=== PATIENT | female | born 1980 | race Caucasian/White ===

== ENCOUNTER 2016-10-17 18:25 | Emergency (ER) | payer SELFPAY ==
[2014-05-28 07:13] VITALS: BMI 41.6
[~2016-10-17 18:25] MED LIST: BYSTOLIC5 MG PO; COVARYX TABLET1 TAB PO; DEXILANT60 MG PO; PROZAC20 MG PO; ULTRAM50 MG PO; VICODIN PO; ZOFRAN4 MG PO
== END 2016-10-17 21:35 | disposition home or self-care (01) ==
LOC: D.ER 18:25
DX: G43.909 Migraine, unspecified, not intractable, without status migrainosus (principal); E86.0 Dehydration; R11.10 Vomiting, unspecified; F17.200 Nicotine dependence, unspecified, uncomplicated; J45.909 Unspecified asthma, uncomplicated; K21.9 Gastro-esophageal reflux disease without esophagitis

== ENCOUNTER 2016-10-18 11:04 | Emergency (ER) | payer MEDICAID ==
[2014-05-28 07:13] VITALS: BMI 41.6
[2016-10-18 12:22] LABS: BASOPHILS 0.2 % (0.0-2.0); EOSINOPHILS 2.9 % (0-7); HEMATOCRIT 40.9 % (36.0-48.0); HEMOGLOBIN 13.4 g/dL (12-16); IMMATURE GRANULOCYTES 0.1 % (0-5); LYMPHOCYTES 36.4 % (15-50); MCH 27.5 pg (26.0-34.0); MCHC 32.8 g/dL (31.0-37.0); MCV 83.8 fL (80.0-100.0); MEAN PLATELET VOLUME 10.5 fL (7.4-10.4); MONOCYTES 7.3 % (2-11); NEUTROPHILS 53.1 % (40-80); PLATELET COUNT 210 10x3/uL (130-400); RBC 4.88 10x6/uL (4.00-5.40); RDW 14.1 % (11.5-14.5); WBC 8.2 10x3/uL (4.8-10.8)
[2016-10-18 12:54] LABS: ALBUMIN 3.4 g/dL (3.4-5.0); ANION GAP 12.5 mmol/L (8-16); BILIRUBIN - TOTAL 0.29 mg/dL (0.2-1.3); CALCIUM 9.4 mg/dL (8.5-10.1); CARBON DIOXIDE 27.4 mmol/L (21.0-32.0); CREATININE - SERUM 1.1 mg/dL (0.6-1.3); POTASSIUM - SERUM 3.9 mmol/L (3.5-5.1); PROTEIN - SERUM 6.7 g/dL (6.4-8.2)
== END 2016-10-18 13:50 | disposition home or self-care (01) ==
LOC: D.ER 11:04
PROVIDERS: Physician Assistant
DX: G43.909 Migraine, unspecified, not intractable, without status migrainosus (principal); F17.200 Nicotine dependence, unspecified, uncomplicated

== ENCOUNTER 2016-10-26 17:47 | Emergency (ER) | payer SELFPAY ==
[2014-05-28 07:13] VITALS: BMI 41.6
== END 2016-10-26 21:40 | disposition home or self-care (01) ==
LOC: D.ER 17:47
DX: G43.919 Migraine, unspecified, intractable, without status migrainosus (principal); E86.0 Dehydration; R11.10 Vomiting, unspecified; F17.200 Nicotine dependence, unspecified, uncomplicated

== ENCOUNTER 2017-07-09 12:54 | Emergency (ER) | payer MEDICAID ==
[2014-05-28 07:13] VITALS: BMI 41.6
[2017-07-30] MEDS ORDERED: ESTRACE1 MG PO (09:10)
[2017-07-30] MEDS ORDERED: LYRICA75 MG PO (09:11)
[2017-07-30] MEDS ORDERED: NORCO 7.5/325 T1 TA1 PO (09:11)
[2017-07-30] MEDS ORDERED: THORAZINE10 MG PO (09:11)
[2017-07-30] MEDS ORDERED: ZOLOFT50 MG PO (09:12)
[2017-07-30] MEDS ORDERED: PEPCID40 MG PO (09:13)
[2017-07-30] MEDS ORDERED: TOPAMAX50 MG PO (09:13)
[2017-07-30] MEDS ORDERED: OMEPRAZOLE20 M1 PO (09:13)
[2017-07-30] MEDS ORDERED: VALIUM10 MG PO (09:14)
[2017-07-30] MEDS ORDERED: PROAIR HFA8.5 GM INH (09:17)
== END 2017-07-09 15:44 | disposition home or self-care (01) ==
LOC: D.ER 12:54
DX: G43.909 Migraine, unspecified, not intractable, without status migrainosus (principal); F17.200 Nicotine dependence, unspecified, uncomplicated

== ENCOUNTER 2017-07-31 07:29 | Day surgery (SDC) | payer MEDICAID ==
[~2017-07-31] VITALS: Ht 160 cm; Wt 117.9 kg
--- NOTE | ~2017-07-31 | OP ---
PATIENT NAME: IRENE VENTURA MEDICAL RECORD: [id number] :76 LOCATION:D.OPS ADMISSION DATE: SURGEON: TONO BAUMAN MD DATE OF OPERATION: 07/31/2017 PREOPERATIVE DIAGNOSES: 1. Serrated adenoma, which had been tattooed at 40 cm within the descending colon. 2. Previous negative biopsies of the ileocecal valve. POSTOPERATIVE DIAGNOSES: 1. Serrated adenoma, which had been tattooed at 40 cm within the descending colon. 2. Previous negative biopsies of the ileocecal valve. 3. Polypoid appearance to the ileocecal valve and significant regrowth of the polyp at 40 cm. PROCEDURES: 1. Total colonoscopy to cecum. 2. Cold endoscopic biopsies of the serrated adenoma at 40 cm and then ablation at the base of the polyp with the argon plasma director clinical applications utilizing the right colon setting in the forced mode. 3. Cold endoscopic biopsies of the ileocecal valve. SURGEON: Tono Bauman MD CASING IN LINE SETTER: None. BLOOD LOSS: Minimal. ANESTHESIA: General. COMPLICATIONS: None. The risks, possible complications, alternatives to procedure were explained to the patient. She elects to proceed. OPERATIVE COURSE: The patient was conveyed to the operating room electively on 07/31/2017. General anesthesia was induced by the anesthesia staff. The patient was placed in the Aguilar position. A digital rectal examination was performed. A colonoscope was inserted through the anus. It was easily advanced to the cecum. I slowly withdrew the endoscope. The prep was adequate. I dragged the folds. The pullback was greater than a 16-minute pullback. I biopsied the ileocecal valve which had a polypoid appearance to particularly under narrow band imaging. The biopsy sites were made hemostatic with the argon plasma director clinical applications. I then withdrew the endoscope to 40 cm. The sessile polyp was noted, it was 2.5 cm in length and was on a fold. It was biopsied multiple times utilizing the cold endoscopic biopsy forceps and then I ablated the base of the polyp with the argon plasma director clinical applications. I then continued to withdraw the endoscope. A retroflexed view was obtained in the rectum. I then unretroflexed the scope and removed it under direct vision. PLAN: I will see the patient in my office in 2-3 weeks. I will plan for the next colonoscopy with the argon plasma director clinical applications to take place in 1 year. OPERATIVE REPORT [id number] IRENE VENTURA TRANSINT:[id number] Voice Confirmation ID: [id number] DOCUMENT ID: [id number] TONO BAUMAN MD at 1212 CC: HANG NOE MD and CARSON MELENDREZ MD [id number] DICTATION DATE: 07/31/17 1544 UNDERCOATER: 07/31/17 1633 [facility] [place] 07/31/[address] [address]
--- NOTE | ~2017-07-31 | HP ---
PATIENT: IRENE VENTURA MEDICAL RECORD: [id number] ACCOUNT: [id number] LOCATION:DMiguelOPS : 76 ADMISSION DATE: 07/31/17 HISTORY AND PHYSICAL EXAMINATION CHIEF COMPLAINT: Colon polyp. HISTORY OF PRESENT ILLNESS: There is a history and physical on the chart. The patient had a polyp, which was tattooed at 40 cm. This was within the descending colon. The pathology on this was that of a serrated adenoma. The history and physical examination has been reviewed as have the patient's current medications, past medical and surgical history, social history. PHYSICAL EXAMINATION: GENERAL: The patient does not appear acutely ill. She does not appear chronically ill. VITAL SIGNS: Reviewed. The entire physical examination was performed in the presence of a female nurse. EARS: External ears appear normal. EYES: Extraocular movements are intact. NECK: Trachea is midline. CHEST: No intercostal retractions. PULMONARY: Nonlabored, no stridor. IMPRESSION: History of serrated adenoma at 40 cm, which has been tattooed. PLAN: Colonoscopy, polypectomy with the argon plasma tail dogger. TRANSINT:[id number] Voice Confirmation ID: [id number] DOCUMENT ID: [id number] TONO BAUMAN MD at 1212 CC: HANG NOE MD and CARSON MELENDREZ MD [id number] DICTATION DATE: 07/31/17 1542 COMPRESSOR MECHANIC BUS: 07/31/17 1600 [facility] 07/31/17 [place] [id number] [place] [id number]
[~2017-07-31 07:29] MED LIST changes: +ESTRACE1 MG PO; +LYRICA75 MG PO; +NORCO 7.5/325 T1 TA1 PO; +OMEPRAZOLE20 M1 PO; +PEPCID40 MG PO; +PROAIR HFA8.5 GM INH; +THORAZINE10 MG PO; +TOPAMAX50 MG PO; +VALIUM10 MG PO; +ZOLOFT50 MG PO
[2017-07-31 07:49] LABS: HEMATOCRIT 43.4 % (36.0-48.0); HEMOGLOBIN 14.3 g/dL (12-16); MCH 28.1 pg (26.0-34.0); MCHC 32.9 g/dL (31.0-37.0); MCV 85.3 fL (80.0-100.0); MEAN PLATELET VOLUME 10.2 fL (7.4-10.4); RBC 5.09 10x6/uL (4.00-5.40); RDW 13.8 % (11.5-14.5); WBC 10.7 10x3/uL (4.8-10.8)
[2017-07-31 08:54] VITALS: BP 102/67; Ht 160 cm; Wt 117.9 kg
== END 2017-07-31 16:55 | disposition home or self-care (01) ==
LOC: D.OPS 07:29 → D.PAN 10:45 → D.OPS 10:45
PROVIDERS: Anesthesiology
DX: K63.5 Polyp of colon (principal); Z01.812 Encounter for preprocedural laboratory examination

== ENCOUNTER 2017-12-28 09:51 | Emergency (ER) | payer MEDICAID ==
[~2017-12-28] VITALS: Ht 160 cm; Wt 110.9 kg
[2017-12-28 09:59] VITALS: Ht 160 cm; Wt 110.9 kg
[2017-12-28] MEDS ORDERED: VOLTAREN75 MG PO (10:44)
[2017-12-28] MEDS ORDERED: ROBAXIN-750750 MG PO (10:44)
[2017-12-28 11:16] VITALS: BP 131/87
== END 2017-12-28 11:17 | disposition home or self-care (01) ==
LOC: D.ER 09:51
DX: M79.1 Myalgia (principal); W19.XXXA Unspecified fall, initial encounter; Y93.89 Activity, other specified; Y92.524 Gas station as the place of occurrence of the external cause

== ENCOUNTER 2018-02-20 16:34 | Emergency (ER) | payer MEDICAID ==
[~2018-02-20] VITALS: Ht 160 cm; Wt 109.1 kg
[~2018-02-20 16:34] MED LIST changes: +ROBAXIN-750750 MG PO; +VOLTAREN75 MG PO
[2018-02-20 16:52] VITALS: Ht 160 cm; Wt 109.1 kg
[2018-02-20 17:10] LABS: BASOPHILS 0.4 % (0-2); EOSINOPHILS 2.2 % (0-7); HEMATOCRIT 41.3 % (36.0-48.0); IMMATURE GRANULOCYTES 0.1 % (0-5); LYMPHOCYTES 34.9 % (15-50); MCH 28.3 pg (26.0-34.0); MCHC 33.9 g/dL (31.0-37.0); MCV 83.4 fL (80.0-100.0); MEAN PLATELET VOLUME 10.5 fL (7.4-10.4); MONOCYTES 5.3 % (2-11); NEUTROPHILS 57.1 % (40-80); RBC 4.95 10x6/uL (4.00-5.40); WBC 8.1 10x3/uL (4.8-10.8)
[2018-02-20 17:16] LABS: PLATELET COUNT 236 10x3/uL (130-400)
[2018-02-20 17:26] LABS: APPEARANCE CLEAR (CLEAR); BILIRUBIN NEGATIVE (NEGATIVE); COLOR YELLOW (YELLOW); GLUCOSE NEGATIVE (NEGATIVE); KETONE NEGATIVE (NEGATIVE); NITRITE NEGATIVE (NEGATIVE); PROTEIN NEGATIVE (NEGATIVE); UROBILINOGEN NORMAL (NORMAL)
[2018-02-20 17:28] LABS: AMORPHOUS SEDIMENT <1+ /lpf (NONE SEEN); BACTERIA MODERATE /hpf (NONE SEEN); EPITHELIAL CELLS 0-5 /hpf (0-5); WHITE CELLS - URINE 0-5 /hpf (0-5)
[2018-02-20 17:31] LABS: ALBUMIN 3.6 g/dL (3.4-5.0); ANION GAP 12.4 mmol/L (8-16); BILIRUBIN - TOTAL 0.22 mg/dL (0.2-1.3); CALCIUM 8.8 mg/dL (8.5-10.1); CARBON DIOXIDE 25.7 mmol/L (21.0-32.0); POTASSIUM - SERUM 4.1 mmol/L (3.5-5.1); PROTEIN - SERUM 7.8 g/dL (6.4-8.2)
[2018-02-20] MEDS ORDERED: CARAFATE1 G PO (18:28)
[2018-02-20] MEDS ORDERED: OMEPRAZOLE40 MG PO (18:28)
[2018-02-20 19:09] VITALS: BP 126/72
== END 2018-02-20 19:10 | disposition home or self-care (01) ==
LOC: D.ER 16:34
PROVIDERS: Family Medicine
DX: K29.60 Other gastritis without bleeding (principal); R11.2 Nausea with vomiting, unspecified; R19.7 Diarrhea, unspecified; J44.9 Chronic obstructive pulmonary disease, unspecified; F17.200 Nicotine dependence, unspecified, uncomplicated

== ENCOUNTER 2018-03-06 18:10 | Emergency (ER) | payer MEDICAID ==
[~2018-03-06] VITALS: Ht 160 cm; Wt 110.5 kg
[~2018-03-06 18:10] MED LIST changes: +CARAFATE1 G PO; +OMEPRAZOLE40 MG PO
[2018-03-06 18:34] VITALS: Ht 160 cm; Wt 110.5 kg
[2018-03-06] MEDS ORDERED: NEURONTIN 300300 MG PO (18:40)
[2018-03-06] MEDS ORDERED: CYMBALTA60 MG PO (18:40)
[2018-03-06] MEDS ORDERED: MINIPRESS2 MG PO (18:41)
[2018-03-06 19:13] LABS: BASOPHILS 0.2 % (0-2); EOSINOPHILS 1.7 % (0-7); HEMATOCRIT 38.8 % (36.0-48.0); HEMOGLOBIN 12.9 g/dL (12-16); IMMATURE GRANULOCYTES 0.1 % (0-5); LYMPHOCYTES 25.1 % (15-50); MCH 27.7 pg (26.0-34.0); MCHC 33.2 g/dL (31.0-37.0); MCV 83.4 fL (80.0-100.0); MEAN PLATELET VOLUME 10.1 fL (7.4-10.4); MONOCYTES 6.1 % (2-11); NEUTROPHILS 66.8 % (40-80); PLATELET COUNT 204 10x3/uL (130-400); RBC 4.65 10x6/uL (4.00-5.40); RDW 14.2 % (11.5-14.5); WBC 10.1 10x3/uL (4.8-10.8)
[2018-03-06 19:43] LABS: ALBUMIN 3.6 g/dL (3.4-5.0); ALKALINE PHOSPHATASE 90 U/L (46-116); ALT (SGPT) 24 U/L (10-68); BILIRUBIN - TOTAL 0.11 mg/dL (0.2-1.3); CALC OSMOLALITY 277 mosm/kg (275-300); CALCIUM 8.7 mg/dL (8.5-10.1); CHLORIDE - SERUM 104 mmol/L (98-107); GLUCOSE 97 mg/dL (74-106); POTASSIUM - SERUM 3.7 mmol/L (3.5-5.1); PROTEIN - SERUM 6.8 g/dL (6.4-8.2); SODIUM 138 mmol/L (136-145); UREA NITROGEN 19 mg/dL (7-18); eGFR NON AFRICAN AMERICAN 65 mL/min (90-120)
[2018-03-06 19:44] LABS: AMYLASE - SERUM 40 U/L (25-115); LIPASE 94 U/L (73-393)
[2018-03-06 19:47] LABS: TROPONIN-I < 0.017 ng/mL (0.000-0.060)
[2018-03-06 21:08] LABS: APPEARANCE CLEAR (CLEAR); BILIRUBIN NEGATIVE (NEGATIVE); COLOR STRAW (YELLOW); GLUCOSE NEGATIVE (NEGATIVE); KETONE NEGATIVE (NEGATIVE); NITRITE NEGATIVE (NEGATIVE); PROTEIN NEGATIVE (NEGATIVE); SPECIFIC GRAVITY 1.005 (1.005-1.020); UROBILINOGEN NORMAL (NORMAL)
[2018-03-06 21:10] LABS: BACTERIA FEW /hpf (NONE SEEN); EPITHELIAL CELLS 0-5 /hpf (0-5); RED CELLS - URINE 0-5 /hpf (0-5); WHITE CELLS - URINE 0-5 /hpf (0-5)
[2018-03-06 21:15] LABS: HCG URINE NEGATIVE (NEGATIVE)
[2018-03-06 21:52] VITALS: BP 112/63
== END 2018-03-06 21:57 | disposition home or self-care (01) ==
LOC: D.ER 18:10
PROVIDERS: Family Medicine
DX: M54.14 Radiculopathy, thoracic region (principal); R10.9 Unspecified abdominal pain; F17.200 Nicotine dependence, unspecified, uncomplicated

== ENCOUNTER → 2018-03-12 08:26 | Outpatient (CLI) | payer MEDICAID ==
[2018-03-06 18:34] VITALS: BMI 43.1
[~2018-03-12 08:26] MED LIST changes: +CYMBALTA60 MG PO; +MINIPRESS2 MG PO; +NEURONTIN 300300 MG PO
== END | disposition home or self-care (01) ==
LOC: D.RAD 03-06 10:00
DX: K21.9 Gastro-esophageal reflux disease without esophagitis (principal)

== ENCOUNTER → 2018-06-06 10:10 | Outpatient (CLI) | payer MEDICAID ==
[2018-03-06 18:34] VITALS: BMI 43.1
[~2018-06-06 10:10] MED LIST changes: +BENTYL 20 MG TA20 MG PO; +COMPAZINE5 MG PO; +FLOMAX0.4 MG PO; +OXYBUTYNIN10 MG/BOTT PO; +SINGULAIR10 MG PO
== END | disposition home or self-care (01) ==
LOC: D.RAD 06-05 11:00
DX: R11.2 Nausea with vomiting, unspecified (principal); R10.9 Unspecified abdominal pain

== ENCOUNTER 2018-06-06 18:21 | Emergency (ER) | payer MEDICAID ==
[~2018-06-06] VITALS: Ht 160 cm; Wt 111.8 kg
[~2018-06-06 18:21] MED LIST changes: -BENTYL 20 MG TA20 MG PO; -COMPAZINE5 MG PO; -FLOMAX0.4 MG PO; -OXYBUTYNIN10 MG/BOTT PO; -SINGULAIR10 MG PO
[2018-06-06 19:04] VITALS: BP 113/67; Ht 160 cm; Wt 111.8 kg
[2018-06-06] MEDS ORDERED: SINGULAIR10 MG PO (19:06)
[2018-06-06] MEDS ORDERED: FLOMAX0.4 MG PO (19:07)
[2018-06-06] MEDS ORDERED: ESTRACE1 MG PO (19:07)
[2018-06-06] MEDS ORDERED: OXYBUTYNIN10 MG/BOTT PO (19:07)
[2018-06-06 19:57] LABS: ALBUMIN 3.5 g/dL (3.4-5.0); ALKALINE PHOSPHATASE 102 U/L (46-116); ALT (SGPT) 27 U/L (10-68); BILIRUBIN - TOTAL 0.15 mg/dL (0.2-1.3); CALC OSMOLALITY 281 mosm/kg (275-300); CALCIUM 8.8 mg/dL (8.5-10.1); CARBON DIOXIDE 26.4 mmol/L (21.0-32.0); CHLORIDE - SERUM 103 mmol/L (98-107); CREATININE - SERUM 0.9 mg/dL (0.6-1.3); GLUCOSE 100 mg/dL (74-106); POTASSIUM - SERUM 3.8 mmol/L (3.5-5.1); SODIUM 141 mmol/L (136-145); UREA NITROGEN 15 mg/dL (7-18); eGFR NON AFRICAN AMERICAN 73 mL/min (90-120)
[2018-06-06 20:02] LABS: AMYLASE - SERUM 58 U/L (25-115); LIPASE 132 U/L (73-393)
[2018-06-06 20:03] LABS: TROPONIN-I < 0.017 ng/mL (0.000-0.060)
[2018-06-06 20:05] LABS: BASOPHILS 0.3 % (0-2); EOSINOPHILS 2.7 % (0-7); HEMATOCRIT 42.7 % (36.0-48.0); HEMOGLOBIN 14.2 g/dL (12-16); IMMATURE GRANULOCYTES 0.2 % (0-5); LYMPHOCYTES 42.6 % (15-50); MCH 28.2 pg (26.0-34.0); MCHC 33.3 g/dL (31.0-37.0); MCV 84.9 fL (80.0-100.0); MEAN PLATELET VOLUME 10.1 fL (7.4-10.4); MONOCYTES 5.4 % (2-11); NEUTROPHILS 48.8 % (40-80); RBC 5.03 10x6/uL (4.00-5.40); RDW 14.3 % (11.5-14.5)
[2018-06-06 20:07] LABS: PLATELET COUNT 276 10x3/uL (130-400)
[2018-06-06 20:33] LABS: APPEARANCE CLEAR (CLEAR); COLOR YELLOW (YELLOW)
[2018-06-06 20:34] LABS: BILIRUBIN NEGATIVE (NEGATIVE); GLUCOSE NEGATIVE (NEGATIVE); KETONE NEGATIVE (NEGATIVE); NITRITE NEGATIVE (NEGATIVE); PROTEIN NEGATIVE (NEGATIVE); UROBILINOGEN NORMAL (NORMAL)
[2018-06-06 20:35] LABS: BACTERIA MODERATE /hpf (NONE SEEN); EPITHELIAL CELLS 0-5 /hpf (0-5); RED CELLS - URINE 0-5 /hpf (0-5); WHITE CELLS - URINE 0-5 /hpf (0-5)
[2018-06-06 20:36] LABS: HCG URINE NEGATIVE (NEGATIVE)
[2018-06-06] MEDS ORDERED: BENTYL 20 MG TA20 MG PO (22:04)
[2018-06-06] MEDS ORDERED: COMPAZINE5 MG PO (22:04)
== END 2018-06-06 22:54 | disposition home or self-care (01) ==
LOC: D.ER 18:21
PROVIDERS: Family Medicine
DX: A08.4 Viral intestinal infection, unspecified (principal); F17.200 Nicotine dependence, unspecified, uncomplicated

== ENCOUNTER → 2018-07-10 08:07 | Day surgery (SDC) | payer MEDICAID ==
[2018-06-06 19:04] VITALS: BMI 43.6
[~2018-07-10 08:07] MED LIST changes: +ALBUTEROL SULF8.5 GM INH; +ALBUTEROL0.63 MG/3 INH; +ATIVAN1 MG PO; +BENTYL 20 MG TA20 MG PO; +COMPAZINE5 MG PO; +DILAUDID2 MG PO; +FLOMAX0.4 MG PO; +MIRALAX17 GM PO; +OXYBUTYNIN10 MG/BOTT PO; +SINGULAIR10 MG PO
== END | disposition home or self-care (01) ==
LOC: D.OPS 08:07
DX: K22.70 Barrett's esophagus without dysplasia (principal); Z01.812 Encounter for preprocedural laboratory examination

== ENCOUNTER 2018-07-28 08:20 | Day surgery (SDC) | payer MEDICAID ==
[2018-07-25 12:52] LABS: HEMATOCRIT 41.4 % (36.0-48.0); HEMOGLOBIN 13.5 g/dL (12-16); MCH 27.7 pg (26.0-34.0); MCHC 32.6 g/dL (31.0-37.0); MCV 84.8 fL (80.0-100.0); MEAN PLATELET VOLUME 9.8 fL (7.4-10.4); RBC 4.88 10x6/uL (4.00-5.40); RDW 14.3 % (11.5-14.5); WBC 7.8 10x3/uL (4.8-10.8)
[~2018-07-28] VITALS: Ht 160 cm; Wt 113.4 kg
[~2018-07-28 08:20] MED LIST changes: -DILAUDID2 MG PO; -MIRALAX17 GM PO
[2018-07-28 10:39] VITALS: BP 118/73; Ht 160 cm; Wt 113.4 kg
[2018-07-28 15:40] VITALS: BP 120/78
--- NOTE | 2018-07-28 16:49 | NUR ---
RECEIVED PT FROM SURGERY, PT IS LYING IN BED CRYING STATES THAT SHE IS HURTING VERY BAD, PT INQUIRED OR ANXIETY MEDICINE, ADVISED PT ANXIETY MEDS ARE SCHEDULED BID NEXT DOSE AT 9, ADMINISTERED PRN PAIN MEDS ASKED PT FAMILY TO ALLOW PT TO RELAX AND SLEEP, SPOUSE AND FATHER AT BEDSIDE TEASING PT ABOUT CRYING DUE TO PAIN, PT ASKED FOR PAIN PATCH STATES SHE SMOKES 2 PACKS OR MORE A DAY, ORDERED PATCH FOR PT, CONTINUE WITH PLAN OF CARE
[2018-07-28 17:23] VITALS: BP 135/78
--- NOTE | 2018-07-28 20:30 | NUR ---
RESTING IN BED. ALERT.ORIENTED. NO COMPLAITNS VOICED. IV INFUSING TO LFA WITHOUT REDNESS OR EDEMA NOTED. ABD WITH 5 LAP SITES WITH STERI STRIPS INTACT. NO DRAINAGE NOTED. COMPLAINTS OF GAS PAIN TO LEFT SHOULDER. PATIENT AMBULATED PER STAFF AROUND UNIT X 2 LAPS. STATES FEELING BETTER.
[2018-07-28 20:31] VITALS: BP 120/66
--- NOTE | 2018-07-29 04:16 | NUR ---
A/OX4. BREATHING EVEN AND UNLABORED. RESITED IV TO LT HAND. DENIES NEEDS. CALL LIGHT IN REACH. BED LOW. WILL CONTINUE POC.
[2018-07-29 05:30] LABS: BASOPHILS 0.2 % (0-2); EOSINOPHILS 0 % (0-7); HEMATOCRIT 37.6 % (36.0-48.0); HEMOGLOBIN 12.5 g/dL (12-16); IMMATURE GRANULOCYTES 0.3 % (0-5); LYMPHOCYTES 24.8 % (15-50); MCH 27.7 pg (26.0-34.0); MCHC 33.2 g/dL (31.0-37.0); MCV 83.4 fL (80.0-100.0); MEAN PLATELET VOLUME 9.7 fL (7.4-10.4); MONOCYTES 6.4 % (2-11); NEUTROPHILS 68.3 % (40-80); PLATELET COUNT 242 10x3/uL (130-400); RBC 4.51 10x6/uL (4.00-5.40); RDW 14.5 % (11.5-14.5); WBC 12.2 10x3/uL (4.8-10.8)
[2018-07-29 05:51] VITALS: BP 103/68
[2018-07-29 06:00] LABS: ANION GAP 15.5 mmol/L (8-16); BILIRUBIN - TOTAL 0.31 mg/dL (0.2-1.3); CALCIUM 8.5 mg/dL (8.5-10.1); CARBON DIOXIDE 23.3 mmol/L (21.0-32.0); CREATININE - SERUM 0.9 mg/dL (0.6-1.3); POTASSIUM - SERUM 3.8 mmol/L (3.5-5.1); PROTEIN - SERUM 6.8 g/dL (6.4-8.2)
--- NOTE | 2018-07-29 07:45 | NUR ---
PATIENT IN BED WITH IV INTACT. EYES CLOSED RESTING QUIETLY. NO COMPLAINTS OR SIGNS OF DISTRESS. FAMILY AT BEDSIDE. CALL LIGHT WITHIN REACH.
[2018-07-29 08:28] VITALS: BP 123/72
[2018-07-29 11:55] VITALS: BP 127/83
--- NOTE | 2018-07-29 12:00 | NUR ---
PATIENT COMPLAINING ABOUT NURSING STAFF IN ADMISSIONS TALKING RUDELY ABOUT HER TATOOS AND PIERCINGS. APOLOGIZE TO PATIENT AND SHE SAID SHE DIDNT WANT TO MAKE A DEAL OUT OF IT IT WAS OK. THEN PATIENT COMPLAINED ABOUT PAIN MEDS NOT HELPING BECAUSE SHE ONLY RECIEVES DILAUDID EVERY 6 HOURS AND THAT THE NORCOS SHE TAKES HERE ARE ONLY FIVES AND SHE TAKES 7.5'S AT HOME. EXPLAINED TO PATIENT THAT SHE IS TAKING DILAUDID, NORCO, AND TORADOL AND ALL THREE OF THEM ARE AVAILABLE TO HER SCHEDULED. PATIENT STATED IT DIDNT MATTER BECAUSE SHE HAS BEEN IN PAIN SINCE SHE HAS BEEN HERE AND THE ONLY TIME SHE WAS EVER ABLE TO GET DILAUDID EVERY 2 HOURS WAS IN THE ER. I TOLD PATIENT I WOULD CALL THE PHYSICIAN FOR HER. VERBALIZED UNDERSTANDING.
--- NOTE | 2018-07-29 12:00 | NUR ---
SPOKE WITH DR. BAUMAN ABOUT PAIN MEDICATIONS. STATED HE WOULD SEND HER HOME WITH DILAUDID PO AND TO GIVE SOME ATIVAN AT THIS TIME TO HELP THE PATIENT RELAX BECAUSE OF HER PAIN AND ANXIETY. ORDERS CARRIED OUT.
--- NOTE | 2018-07-29 12:15 | NUR ---
PATIENT UP AMBULATING IN [place] WITH MOTHER AT THIS TIME. IV INTACT. CALL LIGHT WITHIN REACH.
[2018-07-29] MEDS ORDERED: DILAUDID2 MG PO ×2 (14:04→14:06)
--- NOTE | 2018-07-29 14:57 | NUR ---
PATIENT RECIEVED DC INSTRUCTIONS. VERBALIZED UNDERSTANDING. NO QUETIONS AT THIS TIME. IV REMOVED WITH CATH TIP INTACT. SCHEDULED MEDS GIVEN. WAITING FOR MYLICON DRPS AND LIDOCAINE FROM PHARMACY.
--- NOTE | 2018-07-29 15:00 | NUR ---
PATIENT IN BED WITH EYES CLOSED RETING QUIETLY. NO COMPLAINTS OR SIGNS OF DISTRESS.
--- NOTE | 2018-07-29 16:00 | NUR ---
PATIENT ESCORTED OUT OF BUILDING VIA WC WITH PERSONAL BELONGINGS TO PRIVATE VEHICLE.
--- NOTE | 2018-08-04 16:48 | OP ---
PATIENT NAME: IRENE VENTURA MEDICAL RECORD: [id number] :76 LOCATION:D.OPS ADMISSION DATE: SURGEON: TONO BAUMAN MD DATE OF OPERATION: 07/28/2018 PREOPERATIVE DIAGNOSES: 1. Intractable gastroesophageal reflux disease. 2. Volume reflux. 3. Hiatal hernia. 4. Sebaceous cyst of the back, which has been incised and evacuated. PROCEDURE: 1. Laparoscopic hiatal hernia repair. 2. Laparoscopic Rose fundoplication. 3. Excision of sebaceous cyst of the back with intermediate closure. SURGEON: Tono Bauman MD HAND BUFFER: Dr. Jose Colorado, also Corinna Heredia APN ANESTHESIA: General. COMPLICATIONS: None. The risks, possible complications and alternatives to the procedure were explained to the patient. She elects to proceed. The discussion specifically included, but was not limited to, bleeding requiring emergency reoperation, infection, intestinal injury, esophageal injury, and gastric injury. The patient and myself marked her sebaceous cyst in the holding area prior to surgery. The sebaceous cyst has shrunken since she underwent an incision and evacuation of the contents of the cyst. This will allow for a smaller area to excise. OPERATIVE COURSE: The patient was conveyed to the operating room electively on 07/28/2018. General anesthesia was induced by the anesthesia staff. The abdomen was sterilely prepped and draped. A small skin belen was accomplished in the left upper quadrant. A Veress needle was inserted through the skin belen into the peritoneal cavity. CO2 insufflation was begun. Once a sufficient pneumoperitoneum had been achieved, a 5-mm trocar was inserted in the right side of the abdomen. A 12 mm trocar was inserted in the right periumbilical area, an 11-mm trocar was inserted above the umbilicus and two 5-mm trocars were inserted in the left side of the abdomen. Under direct internal vision utilizing a television camera through an incision just to the left of the xiphoid process, a Miriam retractor was placed to elevate the left lateral segment of the liver. I began my dissection with the Harmonic scalpel along the greater curve of the stomach, taking down the short gastric vessels. I then approached the right radha and began to divide the phrenicoesophageal ligament. I then dissected bluntly between the esophagus and the left radha of the diaphragm. I then went around to the medial aspect of the stomach and incised a portion of the gastrohepatic ligament. I took down more of the phrenicoesophageal ligament. I then created a retroesophageal and retrogastric window bluntly. Blunt dissection of the mediastinum was performed as well as dissection with the OPERATIVE REPORT [id number] IRENE VENTURA Harmonic scalpel. I was able to free up the hiatal hernia and pull of the stomach into the abdominal cavity as well as about 3-4 cm of esophagus. The esophagus was not tethered. The hiatal hernia repair was then undertaken. This was a posterior crural repair utilizing #1 Surgidac Prolene. This is a posterior repair was a tight repair and I was very satisfied with the way it looked. I then went about performing the Rose fundoplication. I grasped the fundus of the stomach and brought it around behind the esophagus medially. This was a 3 stitch anterior fundoplication utilizing the Stratafix suture, PDS. This 3-0 PDS suture was utilized to suture stomach to anterior esophagus to stomach. This was a 3 stitch anterior fundoplication. I irrigated and aspirated. There was no bleeding. The Miriam retractor was removed. The fascia at the 12-mm trocar site and the 11-mm trocar site was closed with the Ran-Fransisco suture closure device and 0 Vicryl sutures. All the trocars were removed and the abdomen desufflated. Skin incisions were closed with interrupted intracuticular 4-0 Monocryl sutures. The patient was then placed in a semi-lateral decubitus position to allow for access to the sebaceous cyst. Through the use of double curvilinear incisions, I excised the sebaceous cyst. The excised defect was 2.5 cm x 2.2 cm. Once I had excised all the cyst contents, subcutaneous flaps were created sharply. This was an intermediate closure. The subdermis was approximated with interrupted 3-0 Vicryls. The skin was approximated with a running intracuticular 4-0 Vicryl. Benzoin and Steri-Strips were applied. The patient was then extubated and conveyed to post-anesthesia care unit where she was in stable condition. She is going to undergo a Gastrografin swallow tomorrow. If this reveals no leakage of contrast material, then she likely will be dismissed home. TRANSINT:[id number] Voice Confirmation ID: [id number] DOCUMENT ID: [id number] TONO BAUMAN MD at 1648 CC: HANG NOE and CARSON MELENDREZ MD [id number] DICTATION DATE: 08/01/18 173 ASSISTANT SIGNAL MAINTAINER: 08/01/189 [facility] 07/29/18 [place] [id number]
== END 2018-07-29 16:00 | disposition home or self-care (01) ==
LOC: D.OPS 08:20 → D.PAN 09:30 → D.OPS 10:30 → D.MS 15:21 → D.OPS 07-29 16:00
PROVIDERS: Anesthesiology; Surgery
DX: K21.9 Gastro-esophageal reflux disease without esophagitis (principal); K44.9 Diaphragmatic hernia without obstruction or gangrene; B43.2 Subcutaneous pheomycotic abscess and cyst

== ENCOUNTER 2018-08-01 20:04 | Emergency (ER) | payer MEDICAID ==
[~2018-08-01] VITALS: Ht 160 cm; Wt 113.6 kg
[~2018-08-01 20:04] MED LIST changes: +DILAUDID2 MG PO
[2018-08-01 20:22] VITALS: Ht 160 cm; Wt 113.6 kg
[2018-08-01 20:44] LABS: BASOPHILS 0.2 % (0-2); EOSINOPHILS 4.6 % (0-7); HEMATOCRIT 37.7 % (36.0-48.0); HEMOGLOBIN 12.2 g/dL (12-16); IMMATURE GRANULOCYTES 0.3 % (0-5); LYMPHOCYTES 34.7 % (15-50); MCHC 32.4 g/dL (31.0-37.0); MCV 86.5 fL (80.0-100.0); MEAN PLATELET VOLUME 9.5 fL (7.4-10.4); MONOCYTES 6.4 % (2-11); NEUTROPHILS 53.8 % (40-80); PLATELET COUNT 255 10x3/uL (130-400); RBC 4.36 10x6/uL (4.00-5.40); RDW 14.2 % (11.5-14.5); WBC 10.1 10x3/uL (4.8-10.8)
[2018-08-01 20:49] LABS: APPEARANCE CLEAR (CLEAR); BILIRUBIN NEGATIVE (NEGATIVE); COLOR STRAW (YELLOW); GLUCOSE NEGATIVE (NEGATIVE); KETONE NEGATIVE (NEGATIVE); NITRITE NEGATIVE (NEGATIVE); PROTEIN NEGATIVE (NEGATIVE); SPECIFIC GRAVITY 1.015 (1.005-1.020); UROBILINOGEN NORMAL (NORMAL)
[2018-08-01 21:06] LABS: ALKALINE PHOSPHATASE 85 U/L (46-116); ALT (SGPT) 39 U/L (10-68); BILIRUBIN - TOTAL 0.08 mg/dL (0.2-1.3); CALC OSMOLALITY 246 mosm/kg (275-300); CALCIUM 8.3 mg/dL (8.5-10.1); CARBON DIOXIDE 26.9 mmol/L (21.0-32.0); CHLORIDE - SERUM 90 mmol/L (98-107); GLUCOSE 98 mg/dL (74-106); POTASSIUM - SERUM 3.2 mmol/L (3.5-5.1); SODIUM 123 mmol/L (136-145); UREA NITROGEN 10 mg/dL (7-18); eGFR NON AFRICAN AMERICAN 65 mL/min (90-120)
[2018-08-01 21:11] LABS: AMYLASE - SERUM 38 U/L (25-115); LIPASE 119 U/L (73-393); TROPONIN-I < 0.017 ng/mL (0.000-0.060)
[2018-08-02] MEDS ORDERED: MIRALAX17 GM PO (00:58)
[2018-08-02 01:14] VITALS: BP 132/81
== END 2018-08-02 01:15 | disposition home or self-care (01) ==
LOC: D.ER 20:04
PROVIDERS: Family Medicine
DX: R10.9 Unspecified abdominal pain (principal); K59.00 Constipation, unspecified; M25.512 Pain in left shoulder; E11.9 Type 2 diabetes mellitus without complications; F17.200 Nicotine dependence, unspecified, uncomplicated

== ENCOUNTER 2018-08-18 20:30 | Emergency (ER) | payer MEDICAID ==
[~2018-08-18] VITALS: Ht 160 cm; Wt 112.3 kg
[~2018-08-18 20:30] MED LIST changes: +MIRALAX17 GM PO
[2018-08-18 20:40] VITALS: Ht 160 cm; Wt 112.3 kg
[2018-08-18 21:02] LABS: BASOPHILS 0.5 % (0-2); EOSINOPHILS 4.7 % (0-7); HEMATOCRIT 42.1 % (36.0-48.0); HEMOGLOBIN 13.9 g/dL (12-16); IMMATURE GRANULOCYTES 0.1 % (0-5); LYMPHOCYTES 47.7 % (15-50); MCH 28.3 pg (26.0-34.0); MCV 85.7 fL (80.0-100.0); MEAN PLATELET VOLUME 11.4 fL (7.4-10.4); PLATELET COUNT 232 10x3/uL (130-400); RBC 4.91 10x6/uL (4.00-5.40); RDW 14.4 % (11.5-14.5); WBC 8.5 10x3/uL (4.8-10.8)
[2018-08-18 21:17] LABS: APTT 30.3 SECONDS (22.8-39.4); INR 0.98 (0.85-1.17); PROTIME 12.5 SECONDS (11.6-15.0)
[2018-08-18 21:29] LABS: ALBUMIN 3.5 g/dL (3.4-5.0); ALKALINE PHOSPHATASE 97 U/L (46-116); ALT (SGPT) 21 U/L (10-68); BILIRUBIN - TOTAL 0.14 mg/dL (0.2-1.3); CALC OSMOLALITY 286 mosm/kg (275-300); CALCIUM 8.5 mg/dL (8.5-10.1); CARBON DIOXIDE 25.6 mmol/L (21.0-32.0); CHLORIDE - SERUM 108 mmol/L (98-107); CKMB 0.8 U/L (0.0-3.6); CREATINE KINASE 120 UL (21-215); CREATININE - SERUM 0.9 mg/dL (0.6-1.3); MAGNESIUM - SERUM 2.2 mg/dL (1.8-2.4); POTASSIUM - SERUM 3.7 mmol/L (3.5-5.1); PROTEIN - SERUM 7.4 g/dL (6.4-8.2); SODIUM 144 mmol/L (136-145); TROPONIN-I < 0.017 ng/mL (0.000-0.060); UREA NITROGEN 12 mg/dL (7-18); eGFR NON AFRICAN AMERICAN 73 mL/min (90-120)
[2018-08-18 21:47] LABS: GLUCOSE 97 mg/dL (74-106)
[2018-08-19 00:43] VITALS: BP 126/66
== END 2018-08-19 00:45 | disposition home or self-care (01) ==
LOC: D.ER 20:30
PROVIDERS: Family Medicine
DX: R10.13 Epigastric pain (principal); R07.81 Pleurodynia; Z98.890 Other specified postprocedural states; F17.200 Nicotine dependence, unspecified, uncomplicated

== ENCOUNTER 2018-09-23 10:58 | Day surgery (SDC) | payer MEDICAID ==
[~2018-09-23] VITALS: Ht 160 cm; Wt 108.2 kg
[2018-09-23 11:31] LABS: HEMATOCRIT 42.2 % (36.0-48.0); HEMOGLOBIN 14.1 g/dL (12-16); MCH 28.3 pg (26.0-34.0); MCHC 33.4 g/dL (31.0-37.0); MCV 84.7 fL (80.0-100.0); MEAN PLATELET VOLUME 10.3 fL (7.4-10.4); RBC 4.98 10x6/uL (4.00-5.40); RDW 14.3 % (11.5-14.5); WBC 7.2 10x3/uL (4.8-10.8)
[2018-09-23 11:39] LABS: ANION GAP 14.7 mmol/L (8-16); CALCIUM 9.2 mg/dL (8.5-10.1); CARBON DIOXIDE 25.1 mmol/L (21.0-32.0); CREATININE - SERUM 0.9 mg/dL (0.6-1.3); POTASSIUM - SERUM 3.8 mmol/L (3.5-5.1)
[2018-09-23] MEDS ORDERED: PEPCID40 MG PO (11:45)
[2018-09-23] MEDS ORDERED: OMEPRAZOLE40 MG PO (11:45)
[2018-09-23 12:04] VITALS: Ht 160 cm; Wt 108.2 kg
[2018-09-23 12:19] VITALS: BP 112/64
--- NOTE | 2018-09-23 16:04 | NUR ---
PT IV REMOVED AND INSTRUCTIONS GIVEN. WITH RX FOR PEPCID, PT IN A HURRY TO GO SO SHE CAN EAT AND SMOKE
--- NOTE | 2018-09-23 17:25 | HP ---
PATIENT: IRENE VENTURA MEDICAL RECORD: [id number] ACCOUNT: [id number] LOCATION:GOLDY : 76 ADMISSION DATE: 09/23/18 PCP: CARSON MELENDREZ MD HISTORY AND PHYSICAL EXAMINATION HISTORY OF PRESENT ILLNESS: The patient has a history of a complex polyp, which has been tattooed at 40 cm. She is here to undergo colonoscopy and possible polypectomy of any recurrent or persistent polyp. Risks were discussed with the patient. A consent form was signed. HOME MEDICINES: Please see the nursing list. The rest of the history and physical is outlined in the chart. PHYSICAL EXAMINATION: GENERAL: The patient does not appear acutely ill. She does not appear chronically ill. VITAL SIGNS: Reviewed. The entire physical examination was performed with the presence of a female nurse. CARDIOVASCULAR: Regular rhythm. HEAD: External ears appear normal. EYES: Extraocular movements are intact. NECK: Trachea is midline. IMPRESSION: History of complex colon polyp at 40 cm, which has been tattooed. PLAN: Colonoscopy and polypectomy. TRANSINT:[id number] Voice Confirmation ID: [id number] DOCUMENT ID: [id number] TONO BAUMAN MD at 1725 CC: HANG NOE and CARSON MELENDREZ MD [id number] DICTATION DATE: 09/23/18 1506 BILLET DRILLER: 09/23/18 1520 [facility] 09/23/18 [facility] [address] [place] [id number]
--- NOTE | 2018-09-23 17:25 | OP ---
PATIENT NAME: IRENE VENTURA MEDICAL RECORD: [id number] :76 LOCATION:D.OPS ADMISSION DATE: SURGEON: TONO BAUMAN MD DATE OF OPERATION: 09/23/2018 PREOPERATIVE DIAGNOSIS: History of complex colon polyp at 40 cm. POSTOPERATIVE DIAGNOSIS: History of complex colon polyp at 40 cm with no evidence of persistence or regrowth of the polyp. PROCEDURES: Total colonoscopy to cecum. SURGEON: Tono Bauman MD LAYBOY TENDER: None. BLOOD LOSS: Minimal. ANESTHESIA: IV sedation. COMPLICATIONS: None. The risks, possible complications and alternatives to the procedure were explained to the patient. She elects to proceed. ENDOSCOPIC COURSE: The patient was conveyed to the endoscopy suite electively on 09/23/2018. IV sedation was induced by the anesthesia staff. The patient was placed in the Aguilar position. A digital rectal examination was performed. A colonoscope was inserted through the anus. It was easily advanced to the cecum. Upon withdrawal, I irrigated and aspirated extensively. The pullback was greater than a 13-minute pullback. I identified the tattooed area at 40 cm. I could not identify any residual polyp or recurrent polypoid tissue. A retroflexed view was obtained in the rectum. I then unretroflexed the scope and removed it under direct vision. I am going to return the patient's surveillance colonoscopy needs back over to Dr. Bentley, her fuel injection servicer. TRANSINT:[id number] Voice Confirmation ID: [id number] DOCUMENT ID: [id number] TONO BAUMAN MD at 1726 CC: HANG BENTLEY and CARSON MELENDREZ MD [id number] DICTATION DATE: 09/23/18 1530 MANAGER INTELLIGENCE: 09/23/18 1603 [facility] 09/23/18 [facility] [address] [place] [id number]
== END 2018-09-23 15:50 | disposition home or self-care (01) ==
LOC: D.OPS 10:58
PROVIDERS: Anesthesiology; ATTEND Surgery
DX: Z86.010 Personal history of colon polyps (principal); Z01.812 Encounter for preprocedural laboratory examination

== ENCOUNTER 2019-03-30 10:17 | Emergency (ER) | payer MEDICAID ==
[~2019-03-30] VITALS: Ht 160 cm; Wt 97.7 kg
[2019-03-30 10:27] VITALS: Ht 160 cm; Wt 97.7 kg
[2019-03-30 11:21] LABS: BASOPHILS 0.2 % (0-2); EOSINOPHILS 2.7 % (0-7); HEMATOCRIT 39.3 % (36.0-48.0); HEMOGLOBIN 13.5 g/dL (12-16); IMMATURE GRANULOCYTES 0.2 % (0-5); LYMPHOCYTES 31.1 % (15-50); MCH 28.4 pg (26.0-34.0); MCHC 34.4 g/dL (31.0-37.0); MCV 82.7 fL (80.0-100.0); MEAN PLATELET VOLUME 10.5 fL (7.4-10.4); MONOCYTES 4.6 % (2-11); NEUTROPHILS 61.2 % (40-80); PLATELET COUNT 236 10x3/uL (130-400); RBC 4.75 10x6/uL (4.00-5.40); RDW 13.3 % (11.5-14.5); WBC 9.7 10x3/uL (4.8-10.8)
[2019-03-30 11:31] LABS: ALBUMIN 3.6 g/dL (3.4-5.0); ANION GAP 14.1 mmol/L (8-16); BILIRUBIN - TOTAL 0.13 mg/dL (0.2-1.3); CALCIUM 9.3 mg/dL (8.5-10.1); CARBON DIOXIDE 25.2 mmol/L (21.0-32.0); CREATININE - SERUM 0.9 mg/dL (0.6-1.3); POTASSIUM - SERUM 4.3 mmol/L (3.5-5.1); PROTEIN - SERUM 7.4 g/dL (6.4-8.2)
[2019-03-30 11:58] LABS: APPEARANCE CLEAR (CLEAR); BILIRUBIN NEGATIVE (NEGATIVE); COLOR YELLOW (YELLOW); GLUCOSE NEGATIVE (NEGATIVE); KETONE NEGATIVE (NEGATIVE); NITRITE NEGATIVE (NEGATIVE); PROTEIN NEGATIVE (NEGATIVE); SPECIFIC GRAVITY 1.015 (1.005-1.020); UROBILINOGEN NORMAL (NORMAL)
[2019-03-30] MEDS ORDERED: CARAFATE1 G/10 ML PO (13:23)
[2019-03-30] MEDS ORDERED: ZOFRAN ODT4 MG/UDTAB PO (13:23)
[2019-03-30 13:35] VITALS: BP 118/60
== END 2019-03-30 13:35 | disposition home or self-care (01) ==
LOC: D.ER 10:17
PROVIDERS: Family Medicine
DX: R11.2 Nausea with vomiting, unspecified (principal); R10.9 Unspecified abdominal pain; K29.70 Gastritis, unspecified, without bleeding

== ENCOUNTER 2019-05-27 11:15 | Emergency (ER) | payer MEDICAID ==
[~2019-05-27] VITALS: Ht 160 cm; Wt 97.7 kg
[~2019-05-27 11:15] MED LIST changes: +CARAFATE1 G/10 ML PO; +ZOFRAN ODT4 MG/UDTAB PO
[2019-05-27 11:40] VITALS: Ht 160 cm; Wt 97.7 kg
[2019-05-27 12:19] LABS: BASOPHILS 0.2 % (0-2); HEMATOCRIT 43.8 % (36.0-48.0); IMMATURE GRANULOCYTES 0.2 % (0-5); LYMPHOCYTES 26.8 % (15-50); MCH 28.1 pg (26.0-34.0); MCV 87.8 fL (80.0-100.0); MEAN PLATELET VOLUME 10.8 fL (7.4-10.4); MONOCYTES 4.6 % (2-11); NEUTROPHILS 67.2 % (40-80); PLATELET COUNT 251 10x3/uL (130-400); RBC 4.99 10x6/uL (4.00-5.40); WBC 9.9 10x3/uL (4.8-10.8)
[2019-05-27 12:26] LABS: APPEARANCE HAZY (CLEAR); BILIRUBIN NEGATIVE (NEGATIVE); COLOR YELLOW (YELLOW); GLUCOSE NEGATIVE (NEGATIVE); KETONE NEGATIVE (NEGATIVE); NITRITE NEGATIVE (NEGATIVE); PROTEIN NEGATIVE (NEGATIVE); UROBILINOGEN NORMAL (NORMAL)
[2019-05-27 12:41] LABS: UDS - AMPHET NEGATIVE QUAL (NEGATIVE); UDS - BARB NEGATIVE QUAL (NEGATIVE); UDS - BENZO NEGATIVE QUAL (NEGATIVE); UDS - COCAINE NEGATIVE QUAL (NEGATIVE); UDS - OPIATE POSITIVE QUAL (NEGATIVE); UDS - PCP NEGATIVE QUAL (NEGATIVE); UDS - THC POSITIVE QUAL (NEGATIVE)
[2019-05-27 12:59] LABS: CALC OSMOLALITY 282 mosm/kg (275-300); CALCIUM 8.8 mg/dL (8.5-10.1); CARBON DIOXIDE 24.3 mmol/L (21.0-32.0); CHLORIDE - SERUM 107 mmol/L (98-107); CREATININE - SERUM 0.9 mg/dL (0.6-1.3); GLUCOSE 109 mg/dL (74-106); POTASSIUM - SERUM 3.9 mmol/L (3.5-5.1); SODIUM 140 mmol/L (136-145); UREA NITROGEN 22 mg/dL (7-18); eGFR NON AFRICAN AMERICAN 73 mL/min (90-120)
[2019-05-27 13:08] LABS: ALBUMIN 3.5 g/dL (3.4-5.0); ALKALINE PHOSPHATASE 96 U/L (46-116); ALT (SGPT) 21 U/L (10-68); AMYLASE - SERUM 53 U/L (25-115); BILIRUBIN - TOTAL 0.16 mg/dL (0.2-1.3); LIPASE 122 U/L (73-393); PROTEIN - SERUM 7.5 g/dL (6.4-8.2); TROPONIN-I < 0.017 ng/mL (0.000-0.060)
[2019-05-27] MEDS ORDERED: GOLYTELY SOLU4000 ML PO (16:54)
[2019-05-27 17:23] VITALS: BP 132/86
== END 2019-05-27 17:23 | disposition home or self-care (01) ==
LOC: D.ER 11:15
PROVIDERS: Family Medicine
DX: K59.00 Constipation, unspecified (principal); J44.9 Chronic obstructive pulmonary disease, unspecified; Z72.0 Tobacco use; J45.909 Unspecified asthma, uncomplicated; R11.0 Nausea

== ENCOUNTER 2020-12-15 11:21 | Observation (INO) | payer OTHER ==
[~2020-12-15] VITALS: Ht 160 cm; Wt 120.5 kg
[~2020-12-15 11:21] MED LIST changes: +DEPAKOTE500 MG PO; +GOLYTELY SOLU4000 ML PO; +MUPIROCIN22 GM TOPICAL
[2020-12-15 11:25] VITALS: BP 136/70
[2020-12-15] MEDS ORDERED: THORAZINE25 MG PO (11:38)
[2020-12-15 11:45] LABS: BASOPHILS 0.5 % (0-2); EOSINOPHILS 1.7 % (0-7); HEMOGLOBIN 13.9 g/dL (12-16); LYMPHOCYTES 45.4 % (15-50); MCH 27.1 pg (26.0-34.0); MCHC 33.2 g/dL (31.0-37.0); MCV 81.7 fL (80.0-100.0); MEAN PLATELET VOLUME 8.4 fL (7.4-10.4); MONOCYTES 6.8 % (2-11); NEUTROPHILS 45.6 % (40-80); PLATELET COUNT 207 10x3/uL (130-400); RBC 5.14 10x6/uL (4.00-5.40); RDW 14.8 % (11.5-14.5); WBC 6.3 10x3/uL (4.8-10.8)
[2020-12-15 11:56] LABS: CALC OSMOLALITY 282 mosm/kg (275-300); CALCIUM 8.7 mg/dL (8.5-10.1); CARBON DIOXIDE 25.1 mmol/L (21.0-32.0); CHLORIDE - SERUM 105 mmol/L (98-107); GLUCOSE 120 mg/dL (74-106); POTASSIUM - SERUM 3.5 mmol/L (3.5-5.1); SODIUM 140 mmol/L (136-145); UREA NITROGEN 21 mg/dL (7-18); eGFR NON AFRICAN AMERICAN 64 mL/min (90-120)
[2020-12-15 12:00] LABS: APTT 28.1 SECONDS (22.8-39.4)
[2020-12-15 12:06] LABS: INR 1.05 (0.85-1.17); PROTIME 12.7 SECONDS (11.6-15.0)
[2020-12-15 12:13] LABS: ALBUMIN 3.6 g/dL (3.4-5.0); ALKALINE PHOSPHATASE 83 U/L (30-120); ALT (SGPT) 29 U/L (10-68); BILIRUBIN - TOTAL 0.29 mg/dL (0.2-1.3); CKMB 1.2 U/L (0.0-3.6); CREATINE KINASE 190 UL (21-215); PROTEIN - SERUM 7.3 g/dL (6.4-8.2)
[2020-12-15 12:16] LABS: TROPONIN-I < 0.017 ng/mL (0.000-0.060)
[2020-12-15 15:48] LABS: AMYLASE - SERUM 46 U/L (25-115); LIPASE 79 U/L (73-393)
[2020-12-15 16:07] LABS: CKMB 1.1 U/L (0.0-3.6); CREATINE KINASE 174 UL (21-215)
[2020-12-15 16:21] LABS: TROPONIN-I < 0.017 ng/mL (0.000-0.060)
[2020-12-16 09:33] VITALS: Ht 160 cm; Wt 120.5 kg
== END 2020-12-15 18:38 | disposition home or self-care (01) ==
LOC: D.ER 11:21 → D.EDHOLD 14:58 → OBSVTIME 14:58 → D.EDHOLD 18:38
PROVIDERS: Family Medicine; ADMIT Emergency Medicine; ATTEND Emergency Medicine
DX: R07.9 Chest pain, unspecified (principal); R06.02 Shortness of breath; I49.3 Ventricular premature depolarization; R10.13 Epigastric pain; J45.909 Unspecified asthma, uncomplicated; G62.9 Polyneuropathy, unspecified; E66.9 Obesity, unspecified; Z68.42 Body mass index [BMI] 45.0-49.9, adult